=== PATIENT | male | born 1965 | race Caucasian/White ===

== ENCOUNTER 2016-08-18 09:33 | Emergency (ER) | payer MEDICAID ==
[2016-08-18 09:40] VITALS: BP 174/96; RESP 18; TEMP 98.1; O2SAT 100
--- NOTE | 2016-08-18 09:58 | ED PDOC ---
Arrival/HPI - General Historian: Patient - History of Present Illness Time/Duration: < week Symptom Onset: Sudden Symptom Course: Unchanged - General Time Seen by Provider: 08/18/16 09:39 - History of Present Illness Narrative History of Present Illness (Text): 51 M with past medical history of NIDDM presents to the ED with R eye pain, redness, pruritus, and watery discharge. Pt states that his symptoms started 4 days ago and has gotten progressively worse. He denies any trauma to the eye. He does complain of photophobia. Denies any headache or visual changes. Denies any dizziness, f/c, sob, cp, abd pain, n/v/d. 08/18/16 10:29 (Fabiano Schmidt) Past Medical History - Provider Review Nursing Documentation Reviewed: Yes - Infectious Disease Hx of Infectious Diseases: None - Endocrine/Metabolic Hx Diabetes Mellitus Type 2: Yes - Psychiatric Hx Substance Use: No Family/Social History Family/Social History: Diabetes Smoking Status: Current Some Days Smoker Hx Alcohol Use: Yes Frequency of alcohol use: Socially Hx Substance Use: No Allergies/Home Meds Allergies/Adverse Reactions: Allergies No Known Allergies Allergy (Verified 08/18/16 09:38) Review of Systems - Physician Review All systems were reviewed & negative as marked: Yes - Review of Systems Constitutional: absent: Fatigue, Fevers Eyes: Photophobia, Eye Pain (R). absent: Vision Changes ENT: absent: Hearing Changes Respiratory: absent: SOB Cardiovascular: absent: Chest Pain Gastrointestinal: absent: Abdominal Pain, Nausea, Vomiting Physical Exam Temperature: Afebrile Blood Pressure: Hypertensive Pulse: Regular Respiratory Rate: Normal Appearance: Positive for: Well-Appearing, Non-Toxic, Comfortable Pain Distress: None Mental Status: Positive for: Alert and Oriented X 3 - Systems Exam Head: Present: Atraumatic, Normocephalic Pupils: Present: PERRL Extroacular Muscles: Present: EOMI Conjunctiva: Present: Injected (no discharge visualized, njo surrounding cellulites ) Mouth: Present: Moist Mucous Membranes Neck: Present: Normal Range of Motion Respiratory/Chest: Present: Clear to Auscultation, Good Air Exchange. No: Respiratory Distress, Accessory Muscle Use Cardiovascular: Present: Regular Rate and Rhythm, Normal S1, S2. No: Murmurs Abdomen: Present: Normal Bowel Sounds. No: Tenderness, Distention, Peritoneal Signs Upper Extremity: Present: Normal Inspection. No: Cyanosis, Edema Lower Extremity: Present: Normal Inspection. No: Edema Neurological: Present: GCS=15, CN II-XII Intact, Speech Normal Skin: Present: Warm, Dry, Normal Color. No: Rashes Psychiatric: Present: Alert, Oriented x 3, Normal Insight, Normal Concentration Vital Signs Temp Resp BP Pulse Ox 08/18/16 09:39 98.1 F 18 174/96 H 100 Medical Decision Making ED Course and Treatment: 08/18/16 10:09 Seen and examined with the resident. Our history and physical exam reveals a gentleman with a several day history of a right eye conjunctivitis. No foreign body. He does not wear contacts. He does not have his glasses with him. ( Yobani Tapia) Impression: 51M with pmh of NIDDM presents to the ED with R eye conjuctivitis Differential Diagnosis included but are not limited to: Viral vs Bacterial vs Allergic Plan: - Outpatient Tobromycin antibiotics to the affected eye. - Reassess and disposition Progress Notes: 08/18/16 10:15 Fluorescein eye stain did not show any foreign body or corneal abrasion. 08/18/16 10:17 On reevaluation the patient feels better and is in no acute distress. I have discussed the results and plan with the patient, who expresses understanding. Patient given the opportunity to ask question, all questions were answered and there is agreement with the plan to discharge the patient home with prescription for Tobramycin. Patient is stable for discharge. Patient was instructed to follow up with physician/clinic in 1-2 days or return if symptoms persist/worsen or new concerning symptoms arise. Instructed to follow up with correction lieutenant today or tomorrow if symptoms continue. Follow up with your PMD with in 1-2 days. (Fabiano Schmidt) Disposition/Present on Arrival - Present on Arrival Any Indicators Present on Arrival: Yes History of DVT/PE: No History of Uncontrolled Diabetes: Yes Urinary Catheter: No History of Decub. Ulcer: No History Surgical Site Infection Following: None - Disposition Have Diagnosis and Disposition been Completed?: Yes Disposition Time: 10:15 Patient Plan: Discharge - Disposition Diagnosis: Pain, eye, right Disposition: HOME/ ROUTINE Condition: IMPROVED Additional Instructions: [Patient Name], thank you for letting us take care of you today. Your provider was [Provider Name Here]. You were treated for [Diagnosis Here]. The emergency medical care you received today was directed at your acute symptoms. If you were prescribed any medication, please fill it and take as directed. It may take several days for your symptoms to resolve. Return to the Emergency Department if your symptoms worsen, do not improve, or if you have any other problems. Please contact your doctor or call one of the physicians/clinics you have been referred to that are listed on the Patient Visit Information form that is included in your discharge packet. Bring any paperwork you were given at discharge with you along with any medications you are taking to your follow up visit. Our treatment cannot replace ongoing medical care by a primary care provider (PCP) outside of the emergency department. Thank you for allowing the [facility] team to be part of your care today. Follow up with an correction lieutenant today or tomorrow if symptoms continue. Follow up with your PMD with in 1-2 days. Prescriptions: Tobramycin 0.3% [Tobrex 0.3% Ophth Soln] 1 drop OD Q4H #1 bottle Referrals: PCP,NO [Primary Care Provider] - Follow up with primary
== END 2016-08-18 10:48 | disposition home or self-care (01) ==
LOC: ED 09:33
DX: H57.11 Ocular pain, right eye (principal); E11.9 Type 2 diabetes mellitus without complications

== ENCOUNTER 2016-11-10 09:24 | Emergency (ER) | payer MEDICAID ==
[2016-11-10 09:37] VITALS: TEMP 98.2; O2SAT 100; BMI 26.6
[2016-11-10] MEDS ORDERED: Sodium Chloride 0.9% 1,000 ML IV STA (10:02)
--- NOTE | 2016-11-10 10:07 | ED PDOC ---
Arrival/HPI - General Chief Complaint: Dizziness/Lightheaded Time Seen by Provider: 11/10/16 09:32 Historian: Patient, Station Examiner (Scribe: Maria Teresa Santos) - History of Present Illness Narrative History of Present Illness (Text): 11/10/16 9:43 A 51 year old male whose past medical history includes diabetes. As per pull worker, Gregorio Santos, the patient presents to the emergency department with 1 week duration left sided weakness with associated dizziness and chest discomfort with exertion. He notes that he also has blurred vision, but he states that he has had that for years. The patient states that he has not been seen by a PMD in years. He denies fevers, chills, nausea, vomiting, diarrhea, abdominal pain, headache, syncope, hematuria, back pain, neck pain, cough or ay other complaint. PMD: None Time/Duration: 1 week Symptom Onset: Sudden Symptom Course: Unchanged Activities at Onset: Rest, Light Context: Home Past Medical History - Provider Review Nursing Documentation Reviewed: Yes - Infectious Disease Hx of Infectious Diseases: None - Cardiac Hx Cardiac Disorders: No - Pulmonary Hx Respiratory Disorders: No - Neurological Hx Neurological Disorder: No - HEENT Hx HEENT Disorder: No - Renal Hx Renal Disorder: No - Endocrine/Metabolic Hx Endocrine Disorders: Yes Hx Diabetes Mellitus Type 2: Yes - Hematological/Oncological Hx Blood Disorders: No - Integumentary Hx Dermatological Disorder: No - Musculoskeletal/Rheumatological Hx Musculoskeletal Disorders: No - Gastrointestinal Hx Gastrointestinal Disorders: No - Genitourinary/Gynecological Hx Genitourinary Disorders: No - Psychiatric Hx Psychophysiologic Disorder: No Hx Substance Use: No - Anesthesia Hx Anesthesia: No Family/Social History - Physician Review Nursing Documentation Reviewed: Yes Family/Social History: No Known Family HX Smoking Status: Current Some Days Smoker Hx Alcohol Use: Yes Frequency of alcohol use: Socially Hx Substance Use: No Allergies/Home Meds Allergies/Adverse Reactions: Allergies No Known Allergies Allergy (Verified 11/10/16 09:42) Home Medications: Home Meds Medication Instructions Recorded Confirmed Unobtainable 11/10/16 11/10/16 Review of Systems - Review of Systems Systems not reviewed;Unavailable: Language Barrier (chief of anesthesiology Maria Teresa Santos present) Constitutional: absent: Fevers, Night Sweats Eyes: Vision Changes. absent: Eye Pain ENT: absent: Hearing Changes Respiratory: absent: Cough Cardiovascular: Chest Pain (chest discomfort with exertion). absent: GRIFFIN, Syncope Gastrointestinal: absent: Abdominal Pain, Diarrhea, Nausea, Vomiting Genitourinary Male: absent: Hematuria Musculoskeletal: absent: Back Pain, Neck Pain Skin: absent: Skin Lesions Neurological: Dizziness, Other (Left sided weakness). absent: Headache Hemo/Lymphatic: absent: Easy Bleeding Psychiatric: absent: Depression Physical Exam - Physical Exam Narrative Physical Exam (Text): Head: Atraumatic. Normocephalic. Eyes: PERRL. EOMI. Conjunctivae are not pale. Diminished visual acuity, patient states this is his baseline over past year. No pain with eye movements. ENT: Mucous membranes are moist and intact. Oropharynx is clear and symmetric. Neck: Supple. Full ROM. No JVD. No lymphadenopathy. Cardiovascular: Regular rate. Regular rhythm. No murmurs, rubs, or gallops. Distal pulses are 2+ and symmetric. Pulmonary/Chest: No evidence of respiratory distress. Clear to auscultation bilaterally. No wheezing, rales or rhonchi. Abdominal: Soft and non-distended. There is no tenderness. No rebound, guarding, or rigidity. No organomegaly. Good bowel sounds. Back: No CVA tenderness. Extremities: No edema. No cyanosis. No clubbing. Full range of motion in all extremities. No calf tenderness. Strong DP/PT pulses. Skin: Skin is warm and dry. No petechiae. No purpura. Neurological: Alert, awake, and oriented to person, place, time, and situation. Normal speech. No facial droop. No pronator drift. Motor and sensory exam grossly intact. Reflexes intact and symmetric. Slightly weaker grasp on left when compared to right. Numbness to both feet. Psychiatric: Good eye contact. Normal interaction, affect, and behavior. Vital Signs Reviewed: Yes Vital Signs Temp Pulse Resp BP Pulse Ox 11/10/16 13:42 70 18 142/89 100 11/10/16 13:41 69 18 141/69 100 11/10/16 12:27 72 18 145/74 100 11/10/16 11:37 71 18 147/79 100 11/10/16 11:08 87 18 168/89 H 100 11/10/16 09:35 98.2 F 91 H 16 171/96 H 100 Temperature: Afebrile Blood Pressure: Hypertensive Pulse: Tachycardic Respiratory Rate: Normal Appearance: Positive for: Well-Appearing, Non-Toxic, Comfortable Pain Distress: None Mental Status: Positive for: Alert and Oriented X 3 Finger Stick Blood Glucose: 315 Medical Decision Making ED Course and Treatment: 11/10/16 10:10 Impression: A 51 year old male presents with left sided weakness with associated dizziness. He states left arm weakness for several days. Also intermittent chest pain. He states that he has been experiencing blurred vision in both eyes for years. He has been noncompliant. He is a smoker. He does not have any medication for his diabetes. Differential Diagnosis included but are not limited to: CVA vs. Hyperglycemia vs. CAD vs. Neuropathy Plan: -- EKG -- Chest X-ray -- Head CT -- Labs -- Urinalysis -- IV Fluids -- Reassess and disposition Progress Notes: Patient on evaluation has pull worker present throughout history and physical. He has slightly weaker grasp on left when compared to right, by history this has been several days. No associated headache or neck pain. No trauma. I am suspicious for neurologic disease, possible tia/cva, although no facial droop or speech deficits noted. Not tpa candidate as symptoms mild and patient with sxs for several days. Given smoking history, DM, and noncompliance over the past several years, I cannot exclude underlying CAD as he has complained of chest pain intermittently, but he is vague if there is any association with exertion or shortness of breath. No calf pain noted. No wheezing noted. Initial EKG and card isos unremarkable. IV fluids ordered for noted hyperglycemia. Current exam not consistent with DKA. I suspect a component of diabetic retinopathy and neuropathy, stressed need for opthalmic evaluation. 11/10/16 11:40: Discussed with patient admission due to high blood sugar, left sided weakness, and suspicion of stroke. Health risks of d/c without admission were greatly stressed. Patient is agreeable for admission. 11/10/16 11:54: Case discussed with Dr. Afsaneh Conte, accepts patient to service. CHEST RADIOGRAPH, 1 VIEW Dictator : Quincy Lin MD Report Date : 11/10/2016 11:49:18 IMPRESSION: No active disease. CT HEAD WITHOUT CONTRAST Dictator : Alber Mario MD Report Date : 11/10/2016 10:58:27 IMPRESSION: Normal CT of the Head. No acute intracranial findings are appreciated at this time. Consider follow-up CT or MRI as clinically warranted. - Lab Interpretations Lab Results: 11/10/16 10:20 11/10/16 10:20 Lab Results 11/10/16 11:00: Urine Color Yellow, Urine Appearance Clear, Urine pH 6.0, Ur Specific [place] 1.010, Urine Protein Negative, Urine Glucose (UA) >=1000, Urine Ketones Negative, Urine Blood Trace-lysed H, Urine Nitrate Negative, Urine Bilirubin Negative, Urine Urobilinogen 0.2, Ur Leukocyte Esterase Negative , Urine RBC Negative, Urine WBC Negative 11/10/16 10:20: PT 10.1, INR 0.94, APTT 26.6 11/10/16 10:20: WBC 8.5, RBC 4.44, Hgb 15.1, Hct 43.2, MCV 97.3, MCH 34.0, MCHC 35.0, RDW 12.2, Plt Count 254, MPV 10.1, Gran % 58.7, Lymph % (Auto) 29.4, [place] % (Auto) 7.9 H, Eos % (Auto) 3.8, Baso % (Auto) 0.2, Gran # 4.98, Lymph # 2.5, [place] # 0.7 H, Eos # 0.3, Baso # 0.02 11/10/16 10:20: Sodium 140, Potassium 4.3, Chloride 105, Carbon Dioxide 26, Anion Gap 13, BUN 6 L, Creatinine 0.6, Est GFR ( Amer) > 60, Est GFR (Non -Af Amer) > 60, Random Glucose 303 H*, Calcium 9.1, Total Bilirubin 0.4, AST 25 , ALT 39, Alkaline Phosphatase 110, Lactate Dehydrogenase 405, Total Creatine Kinase 60, Troponin I < 0.01, Total Protein 6.6, Albumin 4.1, Globulin 2.6, Albumin/Globulin Ratio 1.6 I have reviewed the lab results: Yes - RAD Interpretation Radiology Orders: 11/10/16 10:00 HEAD W/O CONTRAST [CT] Stat 11/10/16 10:01 CHEST ONE VIEW [RAD] Stat - EKG Interpretation EKG Interpretation (Text): EKG at 10:06 normal sinus rhythm rate of [address] elevations Interpreted by ED Physician: Yes Type: 12 lead EKG - Medication Orders Current Medication Orders: Aspirin (Aspirin Chewable) 81 mg PO DAILY DALIA Heparin Sodium (Porcine) (Heparin) 5,000 units SC Q12 DALIA PRN Reason: Protocol Insulin Human Regular (Humulin R Med) 0 units SC ACHS DALIA PRN Reason: Protocol Pantoprazole Sodium (Protonix Inj) 40 mg IVP DAILY DALIA Discontinued Medications Aspirin (Aspirin Chewable) 81 mg PO STAT STA Stop: 11/10/16 11:41 Last Admin: 11/10/16 13:41 Dose: 81 mg Sodium Chloride (Sodium Chloride 0.9%) 1,000 mls @ 1,000 mls/hr IV .Q1H STA Stop: 11/10/16 11:01 Last Admin: 11/10/16 10:19 Dose: 1,000 mls/hr NIHSS Scale (Vass) Time Performed: 09:50 - How Severe is the Stoke Baseline Level of Consciousness: 0=Alert LOC to Questions: 0=Both comments correct LOC to commands: 0=Obeys both correctly Best Gaze: 0=Normal Visual: 0=No visual loss Facial: 0=Normal Motor Arm - Left: 0=No drift Motor Arm - Right: 0=No drift Motor Leg - Left: 0=No drift Motor Leg - Right: 0=No drift Limb Ataxia: 0=Absent Sensory: 0=Normal Best Language: 0=No aphasia Dysarthia: 0=Normal articulation Extinction & Inattention (Neglect): 0=Normal, no object Score: 0 Risk Level: No Stroke Risk rTPA Inclusion/Exclusion - Refusal of Treatment Patient Refused Treatment: Yes - Inclusion Criteria for Altepase Time of Onset is Well Established to be Less Than 270 Minute Before Treatment Would Begin: No - Warning to TPA With Conditions Condition: Stroke Serevity Too Mild - Scribe Statement The provider has reviewed the documentation as recorded by the Gregorio Santos Provider Scribe Attestation: All medical record entries made by the Scribe were at my direction and personally dictated by me. I have reviewed the chart and agree that the record accurately reflects my personal performance of the history, physical exam, medical decision making, and the department course for this patient. I have also personally directed, reviewed, and agree with the discharge instructions and disposition. Disposition/Present on Arrival - Present on Arrival Any Indicators Present on Arrival: Yes History of DVT/PE: No History of Uncontrolled Diabetes: Yes Urinary Catheter: No History of Decub. Ulcer: No History Surgical Site Infection Following: None - Disposition Have Diagnosis and Disposition been Completed?: Yes Diagnosis: Chest pain, Left arm weakness, Neuropathy, Visual disturbance, Hyperglycemia Disposition: HOSPITALIZED Disposition Time: 11:30 Patient Plan: Admission, Observation, Telemetry Patient Problems: Current Active Problems Problem Status Onset Chest pain Acute Hyperglycemia Acute Left arm weakness Acute Neuropathy Acute Visual disturbance Acute Condition: FAIR
[2016-11-10 10:36] LABS: BASO # 0.02 K/mm3 (0.0-2.0); BASO % 0.2 % (0.0-3.0); EOS # 0.3 (0.0-0.7); EOS % 3.8 % (1.5-5.0); GRAN # 4.98 (1.4-6.5); GRAN % 58.7 % (50.0-68.0); HEMATOCRIT 43.2 % (42.0-52.0); LYMPH # 2.5 (1.2-3.4); LYMPH % 29.4 % (22.0-35.0); MEAN CELL VOLUME 97.3 fl (80.0-105.0); MEAN PLATELET VOLUME 10.1 fl (7.0-11.0); MONO # 0.7 (0.1-0.6); MONO % 7.9 % (1.0-6.0); RED CELL DISTRIBUTION WIDTH 12.2 % (11.5-14.5); WHITE BLOOD COUNT 8.5 10^3/ul (4.5-11.0)
[2016-11-10 10:42] LABS: ALB/GLOB RATIO 1.6 (1.1-1.8); ALKALINE PHOSPHATASE 110 U/L (38-133); ALT/SGPT 39 U/L (7-56); AST/SGOT 25 U/L (15-59); BILIRUBIN,TOTAL 0.4 mg/dL (0.2-1.3); BLOOD UREA NITROGEN 6 mg/dL (7-21); CALCIUM 9.1 mg/dL (8.4-10.5); CARBON DIOXIDE 26 mmol/L (21-33); CHLORIDE 105 mmol/L (98-107); GFR AFRICAN-AMERICAN > 60; INR 0.94 (0.93-1.08); PARTIAL THROMBOPLASTIN TIME 26.6 Seconds (23.7-30.8); POTASSIUM 4.3 mmol/L (3.6-5.0); SODIUM 140 mmol/L (132-148); TOTAL PROTEIN 6.6 g/dL (5.8-8.3)
[2016-11-10 10:44] LABS: GLUCOSE,RANDOM 303 mg/dL (70-110)
[2016-11-10 10:55] LABS: TROPONIN I < 0.01 ng/mL
--- NOTE | 2016-11-10 10:59 | CT ---
PROCEDURE: CT HEAD WITHOUT CONTRAST. HISTORY: left sided weakness COMPARISON: None available. TECHNIQUE: Axial computed tomography images were obtained through the head/brain without intravenous contrast. Radiation dose: Total exam DLP = 677.45 mGy-cm. This CT exam was performed using one or more of the following dose reduction techniques: Automated exposure control, adjustment of the mA and/or kV according to patient size, and/or use of iterative reconstruction technique. FINDINGS: HEMORRHAGE: No intracranial hemorrhage. BRAIN: No definite cortical edema or mass-effect is appreciated. Pantoja-white matter differentiation appears intact above and below the tentorium with the brainstem appearing grossly nonfocal. No suspicious extra-axial fluid collection is identified. VENTRICLES: Unremarkable. No hydrocephalus. CALVARIUM: Unremarkable. PARANASAL SINUSES: Multifocal mild ethmoid sinusitis is appreciated. MASTOID AIR CELLS: Unremarkable as visualized. No inflammatory changes. OTHER FINDINGS: None. IMPRESSION: Normal CT of the Head. No acute intracranial findings are appreciated at this time. Consider follow-up CT or MRI as clinically warranted.
[2016-11-10 11:09] VITALS: RESP 18
[2016-11-10 11:23] LABS: URINE BILIRUBIN NEGATIVE (NEGATIVE); URINE BLOOD TRACE-LYSED (NEGATIVE); URINE GLUCOSE (UA) >=1000 mg/dL (NEGATIVE); URINE KETONE NEGATIVE (NEGATIVE); URINE LEUKOCYTE ESTERASE NEGATIVE Leu/uL (NEGATIVE); URINE PROTEIN NEGATIVE mg/dL (<30 mg/dL); URINE UROBILINOGEN 0.2 E.U./dL (<1 E.U./dL)
[2016-11-10 11:29] LABS: URINE APPEARANCE CLEAR (CLEAR); URINE COLOR YELLOW (YELLOW)
[2016-11-10 11:50] LABS: URINE RBC NEGATIVE /hpf (0-2); URINE WBC NEGATIVE /hpf (0-6)
--- NOTE | 2016-11-10 11:51 | RAD ---
PROCEDURE: CHEST RADIOGRAPH, 1 VIEW HISTORY: weakness COMPARISON: None available. FINDINGS: LUNGS: Clear. PLEURA: No pneumothorax or pleural fluid seen. CARDIOVASCULAR: Normal. OSSEOUS STRUCTURES: No significant abnormalities. VISUALIZED UPPER ABDOMEN: Normal. OTHER FINDINGS: None. IMPRESSION: No active disease.
[2016-11-10 13:57] LABS: CHOLESTEROL 162 mg/dL (130-200)
--- NOTE | 2016-11-10 14:45 | CP.PCM.HP ---
<ALVINA HOLLEY - Last Filed: 11/10/16 14:41> History of Present Illness - History of Present Illness History of Present Illness: CC: Dizziness, Chest pain, Hyperglycemia HPI: Pt is a 51 yo M with PMH significant for DM, who presents with complaints of intermittent dizziness associated with numbness to the left arm and bilateral feet over the past week. Patient states that he has had these feelings of numbness on and off. Denies headache, facial weakness, focal extremity weakness, or slurred speech. He also reports 3 day history of intermittent, nonradiating midsternal chest pain, which is new for him. He denies dyspnea with exertion. Patient additionally reports that his sugars have been very high. He states that he used to take insulin, but no longer takes it because it is inconvenient for him. He has not followed up with a physician over the past year. He denies delayed wound healing, but states that he has had some blurry vision. Pt denies SOB, n/v/d, abdominal pain, chills, fever, NOONAN, polyuria, dysuria, orthopnea, gait imbalance, melena, or hematochezia. PMHX: DM PSHX: resection of cyst from L gluteal region Meds: None recently Allergies: NKDA Fam hx: Father had DM Social hx: - occasional cigarette smoking (1 pack per 2 weeks) - EtOH socially - denies recreational drugs Present on Admission - Present on Admission Any Indicators Present on Admission: No Review of Systems - Review of Systems All systems: reviewed and no additional remarkable complaints except (12 point ROS negative other than what is stated in HPI) Past Patient History - Infectious Disease Hx of Infectious Diseases: None - Past Social History Smoking Status: Current Some Days Smoker - CARDIAC Hx Cardiac Disorders: No - PULMONARY Hx Respiratory Disorders: No - NEUROLOGICAL Hx Neurological Disorder: No - HEENT Hx HEENT Problems: No - RENAL Hx Chronic Kidney Disease: No - ENDOCRINE/METABOLIC Hx Endocrine Disorders: Yes Hx Diabetes Mellitus Type 2: Yes - HEMATOLOGICAL/ONCOLOGICAL Hx Blood Disorders: No - INTEGUMENTARY Hx Dermatological Problems: No - MUSCULOSKELETAL/RHEUMATOLOGICAL Hx Musculoskeletal Disorders: No - GASTROINTESTINAL Hx Gastrointestinal Disorders: No - GENITOURINARY/GYNECOLOGICAL Hx Genitourinary Disorders: No - PSYCHIATRIC Hx Psychophysiologic Disorder: No Hx Substance Use: No - SURGICAL HISTORY Hx Surgeries: No - ANESTHESIA Hx Anesthesia: No Meds Allergies/Adverse Reactions: Allergies Allergy/AdvReac Type Severity Reaction Status Date / Time No Known Allergies Allergy Verified 11/10/16 09:42 Physical Exam - Constitutional Appears: No Acute Distress - Head Exam Head Exam: ATRAUMATIC, NORMOCEPHALIC - Eye Exam Eye Exam: EOMI, PERRL - ENT Exam ENT Exam: Mucous Membranes Moist - Neck Exam Neck exam: Positive for: Full Rom. Negative for: Lymphadenopathy, Tenderness, Thyromegaly - Respiratory Exam Respiratory Exam: Clear to Auscultation Bilateral. absent: Rales, Rhonchi, Wheezes - Cardiovascular Exam Cardiovascular Exam: RRR, +S1, +S2. absent: Diastolic murmur, Gallop, Rubs, Systolic Murmur - GI/Abdominal Exam GI & Abdominal Exam: Soft. absent: Distended, Guarding, Organomegaly, Rebound, Rigid, Tenderness - Extremities Exam Extremities exam: Positive for: normal inspection - Back Exam Back exam: NORMAL INSPECTION - Neurological Exam Neurological exam: Alert, Oriented x3 Additional comments: CN II-XII intact. Strength is 5/5 in all extremities. No dysdiadochokinesia, normal finger to nose, heel to patino tests. Negative pronator drift, Rhomberg, and Babinski signs. Mild decreased sensation to the L foot, otherwise sensation is symmetric in face, upper, and lower extremities. Strength 5/5 b/l LE and UE - Psychiatric Exam Psychiatric exam: Normal Affect, Normal Mood - Skin Skin Exam: Dry, Intact, Normal Color, Warm Results - Vital Signs Recent Vital Signs: Last Vital Signs Temp 98.2 F 11/10/16 09:35 Pulse 70 11/10/16 13:42 Resp 18 11/10/16 13:42 BP 142/89 11/10/16 13:42 Pulse Ox 100 11/10/16 13:42 - Labs Result Diagrams: 11/10/16 10:20 11/10/16 10:20 Assessment & Plan - Assessment and Plan (Free Text) Assessment: 51 yo M with PMHx of DM admitted for evaluation and treatment for possible TIA/ stroke, chest pain, and uncontrolled DM. Plan: 1. Possible TIA/Stroke - Admitted to telemetry for observation - Neuro consulted - PT consulted - F/u brain MRI (Ativan given for anxiety) - F/u carotid US, Echo - Start ASA - Head CT negative for intracranial bleed - CXR showed no active disease 2. Chest pain - Cardio consulted - Troponin negative x1, will trend x2 - F/u echo - TSH normal (1.01) - Lipid panel normal, will hold statin for now - start ASA - heart healthy diet 3. Uncontrolled DM - ISS moderate - Carb consistent diet - F/u HbA1c - Accuchecks, trend glucose and adjust insulin as needed - Diabetic education consulted DVT & GI prophylaxis - Heparin SC - Protonix Pt seen and discussed in detail with attending. <Milan Alston - Last Filed: 11/10/16 16:24> Results - Vital Signs Recent Vital Signs: Last Vital Signs Temp 98.2 F 11/10/16 09:35 Pulse 68 11/10/16 15:09 Resp 18 11/10/16 15:09 BP 138/79 11/10/16 15:09 Pulse Ox 100 11/10/16 15:09 - Labs Result Diagrams: 11/10/16 10:20 11/10/16 10:20 Attending/Attestation - Attestation I have personally seen and examined this patient.: Yes I have fully participated in the care of the patient.: Yes I have reviewed all pertinent clinical information: Yes Notes (Text): 11/10/16 16:21 51 year old male with past medical history of diabetes who presents with chest pain, dizziness and left arm numbness. Patient was found to have uncontrolled diabetes secondary to medication noncompliance. He was counselled. Will admit to telemetry unit to rule out ACS and TIA. CT head was negative. MRI brain, carotid dopplers and echocardiogram are ordered. Cardiology, neurology and PT evaluations are requested. Continue with aspirin. Lipid panel is ordered. Continue with insulin ss. A1c is ordered. Milan Alston MD Hospitalist.
--- NOTE | 2016-11-10 15:25 | CARD ---
APPROVED REPORT EKG Measurement Heart [id number] <Conclusion> Normal sinus rhythm Normal ECG
[2016-11-10] MEDS ORDERED: Insulin Reg-MEDIUM-Coverage SC SCH (16:30)
[2016-11-10 16:55] VITALS: BP 138/79; PULSE 68
[2016-11-10] MEDS ORDERED: Pneumococcal 23-Valent Vaccine IM ONE (16:55)
--- NOTE | 2016-11-10 18:01 | US ---
PROCEDURE: Bilateral carotid artery duplex ultrasound HISTORY: Carotid stenosis TIA PHYSICIAN(S): Blue Roth MD. TECHNIQUE: Duplex sonography and color-flow Doppler were used to evaluate the carotid bifurcations and limited segments of the vertebral arteries bilaterally. FINDINGS: There is mild smooth heterogeneous plaque noted at the carotid bifurcations bilaterally. The peak systolic velocity in the proximal right internal carotid artery is 90 cm/sec. This corresponds to a 20 to 39% proximal right ICA stenosis. Normal systolic velocities are noted in the proximal right external carotid artery. There is antegrade flow in the right vertebral artery. The peak systolic velocity in the proximal left internal carotid artery is 82 cm/sec. This corresponds to a 20 to 39% proximal left ICA stenosis. Normal systolic velocities are noted in the proximal left external carotid artery. There is antegrade flow in the l dominant eft vertebral artery. IMPRESSION: 1. Bilateral 20-39% proximal ICA stenoses. 2. Antegrade flow in both vertebral arteries.
--- NOTE | 2016-11-11 07:34 | CP.PCM.DIS ---
<KeithColt - Last Filed: 11/11/16 07:47> Provider - Provider Primary care physician: NO PRIMARY CARE PROVIDER Time Spent in preparation of Discharge (in minutes): 45 Hospital Course - Lab Results Lab Results: Most Recent Lab Values WBC 8.5 10^3/ul (4.5-11.0) 11/10/16 10:20 RBC 4.44 10^6/uL (3.5-6.1) 11/10/16 10:20 Hgb 15.1 g/dL (14.0-18.0) 11/10/16 10:20 Hct 43.2 % (42.0-52.0) 11/10/16 10:20 MCV 97.3 fl (80.0-105.0) 11/10/16 10:20 MCH 34.0 pg (25.0-35.0) 11/10/16 10:20 MCHC 35.0 g/dl (31.0-37.0) 11/10/16 10:20 RDW 12.2 % (11.5-14.5) 11/10/16 10:20 Plt Count 254 10^3/uL (120.0-450.0) 11/10/16 10:20 MPV 10.1 fl (7.0-11.0) 11/10/16 10:20 Gran % 58.7 % (50.0-68.0) 11/10/16 10:20 Lymph % (Auto) 29.4 % (22.0-35.0) 11/10/16 10:20 [place] % (Auto) 7.9 % (1.0-6.0) H 11/10/16 10:20 Eos % (Auto) 3.8 % (1.5-5.0) 11/10/16 10:20 Baso % (Auto) 0.2 % (0.0-3.0) 11/10/16 10:20 Gran # 4.98 (1.4-6.5) 11/10/16 10:20 Lymph # 2.5 (1.2-3.4) 11/10/16 10:20 [place] # 0.7 (0.1-0.6) H 11/10/16 10:20 Eos # 0.3 (0.0-0.7) 11/10/16 10:20 Baso # 0.02 K/mm3 (0.0-2.0) 11/10/16 10:20 PT 10.1 Seconds (9.9-11.8) 11/10/16 10:20 INR 0.94 (0.93-1.08) 11/10/16 10:20 APTT 26.6 Seconds (23.7-30.8) 11/10/16 10:20 Sodium 140 mmol/L (132-148) 11/10/16 10:20 Potassium 4.3 mmol/L (3.6-5.0) 11/10/16 10:20 Chloride 105 mmol/L (98-107) 11/10/16 10:20 Carbon Dioxide 26 mmol/L (21-33) 11/10/16 10:20 Anion Gap 13 (10-20) 11/10/16 10:20 BUN 6 mg/dL (7-21) L 11/10/16 10:20 Creatinine 0.6 mg/dL (0.5-1.4) 11/10/16 10:20 Est GFR ( Amer) > 60 11/10/16 10:20 Est GFR (Non-Af Amer) > 60 11/10/16 10:20 Random Glucose 303 mg/dL (70-110) H* 11/10/16 10:20 Calcium 9.1 mg/dL (8.4-10.5) 11/10/16 10:20 Total Bilirubin 0.4 mg/dL (0.2-1.3) 11/10/16 10:20 AST 25 U/L (15-59) 11/10/16 10:20 ALT 39 U/L (7-56) 11/10/16 10:20 Alkaline Phosphatase 110 U/L (38-133) 11/10/16 10:20 Lactate Dehydrogenase 405 U/L (333-699) 11/10/16 10:20 Total Creatine Kinase 60 U/L (35-230) 11/10/16 10:20 Troponin I < 0.01 ng/mL 11/10/16 10:20 Total Protein 6.6 g/dL (5.8-8.3) 11/10/16 10:20 Albumin 4.1 g/dL (3.0-4.8) 11/10/16 10:20 Globulin 2.6 gm/dL 11/10/16 10:20 Albumin/Globulin Ratio 1.6 (1.1-1.8) 11/10/16 10:20 Triglycerides 176 mg/dL (35-160) H 11/10/16 10:20 Cholesterol 162 mg/dL (130-200) 11/10/16 10:20 LDL Cholesterol Direct 87 mg/dL (0-129) 11/10/16 10:20 HDL Cholesterol 48 mg/dL (29-60) 11/10/16 10:20 TSH 3rd Generation 1.01 mIU/mL (0.46-4.68) 11/10/16 10:20 Urine Color Yellow (YELLOW) 11/10/16 11:00 Urine Appearance Clear (CLEAR) 11/10/16 11:00 Urine pH 6.0 (4.7-8.0) 11/10/16 11:00 Ur Specific [place] 1.010 (1.005-1.035) 11/10/16 11:00 Urine Protein Negative mg/dL (<30 mg/dL) 11/10/16 11:00 Urine Glucose (UA) >=1000 mg/dL (NEGATIVE) 11/10/16 11:00 Urine Ketones Negative mg/dL (NEGATIVE) 11/10/16 11:00 Urine Blood Trace-lysed (NEGATIVE) H 11/10/16 11:00 Urine Nitrate Negative (NEGATIVE) 11/10/16 11:00 Urine Bilirubin Negative (NEGATIVE) 11/10/16 11:00 Urine Urobilinogen 0.2 E.U./dL (<1 E.U./dL) 11/10/16 11:00 Ur Leukocyte Esterase Negative V[place]se/uL (NEGATIVE) 11/10/16 11:00 Urine RBC Negative /hpf (0-2) 11/10/16 11:00 Urine WBC Negative /hpf (0-6) 11/10/16 11:00 - Hospital Course Hospital Course: Pt is a 51 yo M with PMH significant for DM, who presents with complaints of intermittent dizziness associated with numbness to the left arm and bilateral feet over the past week. Patient states that he has had these feelings of numbness on and off. Denies headache, facial weakness, focal extremity weakness , or slurred speech. He also reports 3 day history of intermittent, nonradiating midsternal chest pain, which is new for him. He denies dyspnea with exertion. Patient additionally reports that his sugars have been very high. He states that he used to take insulin, but no longer takes it because it is inconvenient for him. He has not followed up with a physician over the past year. He denies delayed wound healing, but states that he has had some blurry vision. Pt denies SOB, n/v/d, abdominal pain, chills, fever, NOONAN, polyuria , dysuria, orthopnea, gait imbalance, melena, or hematochezia. Pt was advised of the risks associated with leaving, including possible heart attack, possible lasting deficits, and possible . Discharge Exam - Head Exam Head Exam: ATRAUMATIC, NORMOCEPHALIC Discharge Plan - Follow Up Plan Condition: FAIR Disposition: AGAINST MEDICAL ADVICE Instructions: Chest Pain (ED) Referrals: PCP,NO [Primary Care Provider] - <Milan Alston - Last Filed: 11/11/16 10:52> Provider - Provider Primary care physician: NO PRIMARY CARE PROVIDER Hospital Course - Lab Results Lab Results: Most Recent Lab Values WBC 8.5 10^3/ul (4.5-11.0) 11/10/16 10:20 RBC 4.44 10^6/uL (3.5-6.1) 11/10/16 10:20 Hgb 15.1 g/dL (14.0-18.0) 11/10/16 10:20 Hct 43.2 % (42.0-52.0) 11/10/16 10:20 MCV 97.3 fl (80.0-105.0) 11/10/16 10:20 MCH 34.0 pg (25.0-35.0) 11/10/16 10:20 MCHC 35.0 g/dl (31.0-37.0) 11/10/16 10:20 RDW 12.2 % (11.5-14.5) 11/10/16 10:20 Plt Count 254 10^3/uL (120.0-450.0) 11/10/16 10:20 MPV 10.1 fl (7.0-11.0) 11/10/16 10:20 Gran % 58.7 % (50.0-68.0) 11/10/16 10:20 Lymph % (Auto) 29.4 % (22.0-35.0) 11/10/16 10:20 [place] % (Auto) 7.9 % (1.0-6.0) H 11/10/16 10:20 Eos % (Auto) 3.8 % (1.5-5.0) 11/10/16 10:20 Baso % (Auto) 0.2 % (0.0-3.0) 11/10/16 10:20 Gran # 4.98 (1.4-6.5) 11/10/16 10:20 Lymph # 2.5 (1.2-3.4) 11/10/16 10:20 [place] # 0.7 (0.1-0.6) H 11/10/16 10:20 Eos # 0.3 (0.0-0.7) 11/10/16 10:20 Baso # 0.02 K/mm3 (0.0-2.0) 11/10/16 10:20 PT 10.1 Seconds (9.9-11.8) 11/10/16 10:20 INR 0.94 (0.93-1.08) 11/10/16 10:20 APTT 26.6 Seconds (23.7-30.8) 11/10/16 10:20 Sodium 140 mmol/L (132-148) 11/10/16 10:20 Potassium 4.3 mmol/L (3.6-5.0) 11/10/16 10:20 Chloride 105 mmol/L (98-107) 11/10/16 10:20 Carbon Dioxide 26 mmol/L (21-33) 11/10/16 10:20 Anion Gap 13 (10-20) 11/10/16 10:20 BUN 6 mg/dL (7-21) L 11/10/16 10:20 Creatinine 0.6 mg/dL (0.5-1.4) 11/10/16 10:20 Est GFR ( Amer) > 60 11/10/16 10:20 Est GFR (Non-Af Amer) > 60 11/10/16 10:20 Random Glucose 303 mg/dL (70-110) H* 11/10/16 10:20 Calcium 9.1 mg/dL (8.4-10.5) 11/10/16 10:20 Total Bilirubin 0.4 mg/dL (0.2-1.3) 11/10/16 10:20 AST 25 U/L (15-59) 11/10/16 10:20 ALT 39 U/L (7-56) 11/10/16 10:20 Alkaline Phosphatase 110 U/L (38-133) 11/10/16 10:20 Lactate Dehydrogenase 405 U/L (333-699) 11/10/16 10:20 Total Creatine Kinase 60 U/L (35-230) 11/10/16 10:20 Troponin I < 0.01 ng/mL 11/10/16 10:20 Total Protein 6.6 g/dL (5.8-8.3) 11/10/16 10:20 Albumin 4.1 g/dL (3.0-4.8) 11/10/16 10:20 Globulin 2.6 gm/dL 11/10/16 10:20 Albumin/Globulin Ratio 1.6 (1.1-1.8) 11/10/16 10:20 Triglycerides 176 mg/dL (35-160) H 11/10/16 10:20 Cholesterol 162 mg/dL (130-200) 11/10/16 10:20 LDL Cholesterol Direct 87 mg/dL (0-129) 11/10/16 10:20 HDL Cholesterol 48 mg/dL (29-60) 11/10/16 10:20 TSH 3rd Generation 1.01 mIU/mL (0.46-4.68) 11/10/16 10:20 Urine Color Yellow (YELLOW) 11/10/16 11:00 Urine Appearance Clear (CLEAR) 11/10/16 11:00 Urine pH 6.0 (4.7-8.0) 11/10/16 11:00 Ur Specific [place] 1.010 (1.005-1.035) 11/10/16 11:00 Urine Protein Negative mg/dL (<30 mg/dL) 11/10/16 11:00 Urine Glucose (UA) >=1000 mg/dL (NEGATIVE) 11/10/16 11:00 Urine Ketones Negative mg/dL (NEGATIVE) 11/10/16 11:00 Urine Blood Trace-lysed (NEGATIVE) H 11/10/16 11:00 Urine Nitrate Negative (NEGATIVE) 11/10/16 11:00 Urine Bilirubin Negative (NEGATIVE) 11/10/16 11:00 Urine Urobilinogen 0.2 E.U./dL (<1 E.U./dL) 11/10/16 11:00 Ur Leukocyte Esterase Negative Varghese/uL (NEGATIVE) 11/10/16 11:00 Urine RBC Negative /hpf (0-2) 11/10/16 11:00 Urine WBC Negative /hpf (0-6) 11/10/16 11:00 Attending/Attestation - Attestation I have reviewed all pertinent clinical information, including history, physical exam and plan: Yes Notes (Text): 11/11/16 10:50 Patient was admitted earlier in the day with chest pain, dizziness and left arm numbness. He was to be admitted to rule out ACS and TIA/CVA. Please see HP same day. Patient signed out against medical advice from ER later in the evening. He was explained risks of signing out AMA by resident. Milan Alston MD Hospitalist.
== END 2016-11-10 17:14 | disposition left against medical advice (07) ==
LOC: ED 09:24 → ERH 11:56 → UNDOADMOB 11:56 → ERH 16:34 → UNDODISOB 19:30
DX: E11.65 Type 2 diabetes mellitus with hyperglycemia (principal); R07.9 Chest pain, unspecified; R53.1 Weakness; G62.9 Polyneuropathy, unspecified; H53.9 Unspecified visual disturbance
CPT/HCPCS: 70450; 71010; 80053; 80061; 81001; 82550; 83036; 83615; 84443; 84484; 85025; 85610; 85730; 93005; 93880; 96360; 99285; J7040

== ENCOUNTER 2017-05-08 10:09 | Emergency (ER) | payer MEDICAID ==
[2017-05-08 10:09] VITALS: BMI 26.6
[2017-05-08 10:19] VITALS: RESP 18
[2017-05-08] MEDS ORDERED: Sodium Chloride 0.9% 1,000 ML IV STA (10:33)
--- NOTE | 2017-05-08 10:33 | ED PDOC ---
Arrival/HPI - General Chief Complaint: Lower Extremity Problem/Injury Time Seen by Provider: 05/08/17 10:23 Historian: Patient - History of Present Illness Narrative History of Present Illness (Text): 05/08/17 10:30 Austin Rodriguez is a 51 year old male, whose past medical history include diabetes, who presents to the emergency department complaining of high blood sugar. Patient also reports having dysuria and frequency for one week. He states having intermittent episodes of bilateral upper and lower extremities going numb which is chronic. . Patient denies fever, shortness of breath, chest pain, headache, nausea, vomiting, hematuria, or other complaints. 05/08/17 14:48 Time/Duration: 1 week Symptom Onset: Sudden Symptom Course: Unchanged Quality: Burning (urination ) Context: Home Past Medical History - Provider Review Nursing Documentation Reviewed: Yes - Infectious Disease Hx of Infectious Diseases: None - Cardiac Hx Cardiac Disorders: No - Pulmonary Hx Respiratory Disorders: No - Neurological Hx Neurological Disorder: No - HEENT Hx HEENT Disorder: Yes (blurred vision "for years") - Renal Hx Renal Disorder: No - Endocrine/Metabolic Hx Endocrine Disorders: Yes Hx Diabetes Mellitus Type 2: Yes Other/Comment: not compliant with diabetic meds, has not seen dr "for years" - Hematological/Oncological Hx Blood Disorders: No - Integumentary Hx Dermatological Disorder: No - Musculoskeletal/Rheumatological Hx Musculoskeletal Disorders: No Hx Falls: No - Gastrointestinal Hx Gastrointestinal Disorders: No - Genitourinary/Gynecological Hx Genitourinary Disorders: No - Psychiatric Hx Psychophysiologic Disorder: No Hx Substance Use: No - Anesthesia Hx Anesthesia: No Family/Social History - Physician Review Nursing Documentation Reviewed: Yes Family/Social History: Unknown Family HX Smoking Status: Light Smoker < 10 Cigarettes Daily Hx Alcohol Use: No Hx Substance Use: No Allergies/Home Meds Allergies/Adverse Reactions: Allergies No Known Allergies Allergy (Verified 05/08/17 10:18) Home Medications: Home Meds Medication Instructions Recorded Confirmed Unobtainable 05/08/17 05/08/17 Review of Systems - Review of Systems Constitutional: absent: Fevers Respiratory: absent: SOB, Cough Gastrointestinal: absent: Abdominal Pain, Vomiting Genitourinary Male: Dysuria, Frequency. absent: Hematuria Musculoskeletal: absent: Back Pain Skin: absent: Rash Neurological: Other (intermittent numbness on bilateral upper and lower extremities ). absent: Headache Endocrine: Other (high blood suguar). absent: Diaphoresis Physical Exam Vital Signs Reviewed: Yes Vital Signs Temp Pulse Resp BP Pulse Ox 05/08/17 12:19 72 18 118/70 98 05/08/17 11:33 98.7 F 76 18 116/65 96 05/08/17 10:11 98 F 90 18 159/89 H 100 Temperature: Afebrile Blood Pressure: Hypertensive Pulse: Regular Respiratory Rate: Normal Appearance: Positive for: Well-Appearing, Non-Toxic, Comfortable Pain Distress: None Mental Status: Positive for: Alert and Oriented X 3 - Systems Exam Head: Present: Atraumatic, Normocephalic Pupils: Present: PERRL Extroacular Muscles: Present: EOMI Conjunctiva: Present: Normal Respiratory/Chest: Present: Clear to Auscultation, Good Air Exchange. No: Respiratory Distress, Accessory Muscle Use, Wheezes, Rhonchi Cardiovascular: Present: Regular Rate and Rhythm, Normal S1, S2. No: Murmurs Abdomen: Present: Normal Bowel Sounds. No: Tenderness, Distention, Peritoneal Signs, Rebound, Guarding Lower Extremity: Present: Normal Inspection, NORMAL PULSES, Normal ROM, Neurovascularly Intact, Capillary Refill < 2 s. No: Edema, Cyanosis, Tenderness , Swelling, Erythema, Deformity Neurological: Present: GCS=15, CN II-XII Intact, Speech Normal Skin: Present: Warm, Dry, Normal Color. No: Rashes Psychiatric: Present: Alert, Oriented x 3, Normal Insight, Normal Concentration Medical Decision Making ED Course and Treatment: 05/08/17 Impression: 51 year old male with unremarkable physical exam complaining of high blood sugar and dysuria ro dka, suspect diabetic neurpathy r/o dvt Plan: -- EKG -- Labs -- Urinalysis -- Ultrasound -- Sodium Chloride -- Reassess and disposition Progress Notes: 05/08/17 11:21 EKG: Ordered, reviewed, and independently interpreted the EKG. Rate : 80 BPM Rhythm : NSR Interpretation : No ST-segment elevations or depressions, no T-wave inversions, normal intervals. 05/08/17 14:48 pt reassesed no e/o of dka bgm improved. dvt study neg. advise outpt fu . obtained all hx with tranlator bedside. - Lab Interpretations Lab Results: 05/08/17 11:06 05/08/17 11:06 Lab Results 05/08/17 11:49: POC Glucose (mg/dL) 275 H 05/08/17 11:06: Sodium 139, Potassium 4.1, Chloride 101, Carbon Dioxide 25, Anion Gap 17, BUN 7, Creatinine 0.6 L, Est GFR ( Amer) > 60, Est GFR (Non -Af Amer) > 60, Random Glucose 342 H*, Calcium 9.2, Magnesium 1.6 L, Total Bilirubin 0.2, AST 20, ALT 32, Alkaline Phosphatase 111, Lactate Dehydrogenase 340, Total Creatine Kinase 61, Troponin I < 0.01, Total Protein 6.3, Albumin 3.9 , Globulin 2.4, Albumin/Globulin Ratio 1.6 05/08/17 11:06: PT 10.3, INR 0.90 L, APTT 30.7 05/08/17 11:06: WBC 9.7, RBC 4.14, Hgb 13.7 L, Hct 40.7 L, MCV 98.3, MCH 33.1, MCHC 33.7, RDW 12.3, Plt Count 249, MPV 10.4, Gran % 59.5, Lymph % (Auto) 28.0, [place] % (Auto) 7.2 H, Eos % (Auto) 5.1 H, Baso % (Auto) 0.2, Gran # 5.75, Lymph # (Auto) 2.7, [place] # (Auto) 0.7 H, Eos # (Auto) 0.5, Baso # (Auto) 0.02 05/08/17 11:00: pO2 134 H, VBG pH 7.36, VBG pCO2 50.0, VBG HCO3 28.2 H, VBG O2 Sat (Calc) 99.2 H, VBG Base Excess 1.9 05/08/17 10:55: Urine Color Yellow, Urine Appearance Clear, Urine pH 6.0, Ur Specific [place] 1.010, Urine Protein Negative, Urine Glucose (UA) >=1000, Urine Ketones Negative, Urine Blood Negative, Urine Nitrate Negative, Urine Bilirubin Negative, Urine Urobilinogen 0.2, Ur Leukocyte Esterase Negative I have reviewed the lab results: Yes - RAD Interpretation Radiology Orders: 05/08/17 10:33 DUPLEX LOWER EXTRM VEIN BILAT [US] Stat Paint Trimmer Pipe Bowls: Radiologist - EKG Interpretation Interpreted by ED Physician: Yes Type: 12 lead EKG - Medication Orders Current Medication Orders: Discontinued Medications Sodium Chloride (Sodium Chloride 0.9%) 1,000 mls @ 999 mls/hr IV .Q1H1M STA Stop: 05/08/17 11:33 Last Admin: 05/08/17 10:50 Dose: 999 mls/hr eMAR Start Stop Document 05/08/17 10:50 SF (Rec: 05/08/17 11:23 SF [id number]) Intravenous Solution Start Date 05/08/17 Start Time 10:50 End Date 05/08/17 End time 11:51 Total Infusion Time 61 - Scribe Statement The provider has reviewed the documentation as recorded by the Gregorio Thompson Provider Scribe Attestation: All medical record entries made by the Scribe were at my direction and personally dictated by me. I have reviewed the chart and agree that the record accurately reflects my personal performance of the history, physical exam, medical decision making, and the department course for this patient. I have also personally directed, reviewed, and agree with the discharge instructions and disposition. Disposition/Present on Arrival - Present on Arrival Any Indicators Present on Arrival: No History of DVT/PE: No History of Uncontrolled Diabetes: Yes Urinary Catheter: No History of Decub. Ulcer: No History Surgical Site Infection Following: None - Disposition Have Diagnosis and Disposition been Completed?: Yes Diagnosis: Hyperglycemia, Neuropathy Disposition: HOME/ ROUTINE Disposition Time: 02:00 Condition: STABLE Discharge Instructions (ExitCare): Peripheral Neuropathy, Hyperglycemia, Adult Print Language: RWANDAN Additional Instructions: please follow up with your doctor. you will need to discuss your diabetes meds. please see sepcialist. Referrals: [facility] [Outside] - Follow up with primary [facility] [place] [Outside] - Follow up with primary Giorgi Kuhn MD [Primary Care Provider] - Follow up with primary Lee Viveros MD [Staff Provider] - Follow up with primary Forms: [employer] ([employer])
[2017-05-08 11:10] LABS: BASO # 0.02 K/mm3 (0.0-2.0); BASO % 0.2 % (0.0-3.0); EOS # 0.5 (0.0-0.7); EOS % 5.1 % (1.5-5.0); GRAN # 5.75 (1.4-6.5); GRAN % 59.5 % (50.0-68.0); HEMOGLOBIN 13.7 g/dL (14.0-18.0); LYMPH # 2.7 (1.2-3.4); MEAN CELL VOLUME 98.3 fl (80.0-105.0); MEAN CORPUSCULAR HEMOGLOBIN 33.1 pg (25.0-35.0); MEAN CORPUSCULAR HGB CONC 33.7 g/dl (31.0-37.0); MEAN PLATELET VOLUME 10.4 fl (7.0-11.0); MONO # 0.7 (0.1-0.6); MONO % 7.2 % (1.0-6.0); RBC 4.14 10^6/uL (3.5-6.1); RED CELL DISTRIBUTION WIDTH 12.3 % (11.5-14.5); WHITE BLOOD COUNT 9.7 10^3/ul (4.5-11.0)
[2017-05-08 11:17] LABS: VENOUS BLOOD GAS BASE EXCESS 1.9 mmol/L (0.0-2.0); VENOUS BLOOD GAS PO2 134 mm/Hg (30-55); VENOUS BLOOD PH 7.36 (7.32-7.43)
[2017-05-08 11:18] LABS: URINE BILIRUBIN NEGATIVE (NEGATIVE); URINE BLOOD NEGATIVE (NEGATIVE); URINE GLUCOSE (UA) >=1000 mg/dL (NEGATIVE); URINE LEUKOCYTE ESTERASE NEGATIVE Leu/uL (NEGATIVE); URINE NITRATE NEGATIVE (NEGATIVE); URINE PROTEIN NEGATIVE mg/dL (<30 mg/dL); URINE UROBILINOGEN 0.2 E.U./dL (<1 E.U./dL)
[2017-05-08 11:19] LABS: URINE APPEARANCE CLEAR (CLEAR); URINE COLOR YELLOW (YELLOW)
[2017-05-08 11:27] LABS: PROTHROMBIN TIME 10.3 SECONDS (9.4-12.5)
[2017-05-08 11:28] LABS: INR 0.9 (0.93-1.08); PARTIAL THROMBOPLASTIN TIME 30.7 Seconds (25.1-36.5)
[2017-05-08 11:34] LABS: ALB/GLOB RATIO 1.6 (1.1-1.8); ALBUMIN 3.9 g/dL (3.0-4.8); ALT/SGPT 32 U/L (7-56); AST/SGOT 20 U/L (17-59); BLOOD UREA NITROGEN 7 mg/dL (7-21); CALCIUM 9.2 mg/dL (8.4-10.5); GFR AFRICAN-AMERICAN > 60; GFR NON-AFRICAN AMERICAN > 60; MAGNESIUM 1.6 mg/dL (1.7-2.2); TROPONIN I < 0.01 ng/mL
[2017-05-08 11:35] VITALS: TEMP 98.7
[2017-05-08 12:20] VITALS: BP 118/70; PULSE 72; O2SAT 98
--- NOTE | 2017-05-08 13:29 | US ---
HISTORY: Leg pain and swelling. Evaluate for DVT PHYSICIAN(S): Blue Roth MD. TECHNIQUE: Duplex sonography and color-flow Doppler with graded compression were used to evaluate the deep venous systems of both lower extremities. FINDINGS: The visualized deep venous systems of both lower extremities are sonographically normal and compressible. Normal wave forms and augmentation are seen. There is no sonographic evidence for deep venous thrombosis in the visualized segments of both lower extremities. IMPRESSION: No sonographic evidence for deep venous thrombosis in the visualized segments of both lower extremities.
--- NOTE | 2017-05-09 02:36 | CARD ---
APPROVED REPORT EKG Measurement Heart [id number] <Conclusion> Normal sinus rhythm Normal ECG
== END 2017-05-08 12:21 | disposition home or self-care (01) ==
LOC: ED 10:09
DX: E11.65 Type 2 diabetes mellitus with hyperglycemia (principal); G62.9 Polyneuropathy, unspecified; F17.210 Nicotine dependence, cigarettes, uncomplicated
CPT/HCPCS: 80053; 81003; 82550; 82803; 82948; 83615; 83735; 84484; 85025; 85610; 85730; 93005; 93970; 96360; 99284; J7040